=== PATIENT | female | born 1945 | race Caucasian/White ===

== ENCOUNTER 2016-08-01 17:23 | Emergency (ER) | payer MEDICAID ==
[~2016-08-01] VITALS: Ht 160 cm; Wt 54.5 kg
[2016-08-01 17:27] VITALS: Ht 160 cm; Wt 54.5 kg
--- NOTE | 2016-08-01 19:10 | RADRPT ---
PROCEDURE: CT neck without IV contrast. CLINICAL INDICATION: Pain/foreign body. TECHNIQUE: CT scan of the neck was performed on a 64-slice scanner. Contiguous axial images were obtained throughout the neck. The patient scanned without IV contrast. Coronal and sagittal reform atted images were made. Total radiation dose: Total CTDIvol: 8.1 mGy. Total DLP: 191 mGy-cm. One or more of the following d ose reduction techniques were used: automated exposure control, adjustment of the mA and/or kV accor ding to patient size, or use of iterative reconstruction technique COMPARISON: None available. FINDINGS: Nasopharynx/infratemporal fossa/skull base: The nasopharynx appears unremarkable. The torus tubarius/fossa Rosenmuller are normal. There is no destructive skull base lesion present. The pterygoid muscles appear unremarkable. The paranasal s inuses and orbits unremarkable. Oropharynx/oral cavity: There is no soft tissue mass present. The soft palate and tonsillar region are normal. The intrins ic tongue and floor of the mouth musculature are normal. The parapharyngeal space, sublingual/subma ndibular spaces and pharyngeal mucosal space appear normal. Hypopharynx/larynx: The hypopharynx and larynx unremarkable. The epiglottis, glossoepiglottic fold and vallecula have a normal appearance. The pyriform sinuses are unremarkable. The hyoid bone, thyroid cartilage, and ar ytenoid and cricoid cartilages are unremarkable. Lymph nodes: There is no significant lymphadenopathy present. Multipule sub-centimeter lymph nodes are present i n the anterior and posterior triangles of the neck. Salivary and thyroid glands: The parotid, submandibular and the region of the sublingual glands are unremarkable. The thyroid gl ands are normal. Others: There is mild degenerative spondylosis at C4-C5 and C5-C6. The visualized apical lung is c lear. There is 2 cm x 1.4 cm( CC x TR) opaque foreign body, likely fish bone in the proximal esopha raulito just below the cricopharyngeus IMPRESSION: 1. 2 cm x 1.4 cm( CC x TR) opaque foreign body, likely fish bone, in the proximal esophagus just be low the cricopharyngeus. 2. Mild degenerative spondylosis at C4-C5 and C5-C6. RPTAT: GG .Bassem Lopes MD, MD Date Time Electronically viewed and signed by .Bassem Lopes MD, MD on 08/01/2016 19:10 .Y/
[2016-08-01] MEDS ORDERED: ONDANSETRON 4 MG INJ IM STA (19:19)
[2016-08-01] MEDS ORDERED: GLUCAGON 1 MG INJ IM STA (19:19)
--- NOTE | 2016-08-01 20:43 | ERD ---
ER Documentation Chief Complaint Date/Time DATE: 08/01/16 TIME: 20:39 Chief Complaint feels fishbone stuck in throat x 2 hrs , no sob HPI This 70-year-old female presents to the emergency room for evaluation of sensation of a foreign body in her throat. The patient states using physician feels that she has a fishbone stuck in her throat for approximately 2 hours. She denies any shortness of breath or nausea or vomiting at this time. She denies any difficulty swallowing or drooling. ROS All systems reviewed and are negative except as per history of present illness. Allergies Allergies: Coded Allergies: No Known Allergy (Unverified , 08/01/16) PMhx/Soc Medical and Surgical Hx: pt denies Medical Hx, pt denies Surgical Hx Hx Cardiac Disorders: Yes (htn) Hx Alcohol Use: No Hx Substance Use: No Hx Tobacco Use: No Smoking Status: Never smoker Physical Exam Vitals Vital Signs Date Time Temp Pulse Resp B/P Pulse Ox O2 Delivery O2 Flow Rate FiO2 08/01/16 17:27 98.0 88 18 147/64 98 Physical Exam Const: No acute distress Head: Atraumatic Eyes: Normal Conjunctiva ENT: Normal External Ears, Nose and Mouth. Neck: Full range of motion..~ No meningismus. Resp: Clear to auscultation bilaterally Cardio: Regular rate and rhythm, no murmurs Abd: Soft, non tender, non distended. Normal bowel sounds Skin: No petechiae or rashes Back: No midline or flank tenderness Ext: No cyanosis, or edema Neur: Awake and alert Psych: Normal Mood and Affect Results 24 hrs Current Medications Medications (Trade) Dose Ordered Sig/Sugey Route PRN Reason Start Time Stop Time Status Last Admin Dose Admin Glucagon (Glucagen) 1 mg ONCE STAT IM 08/01/16 19:19 08/01/16 19:20 DC 08/01/16 19:24 Ondansetron HCl (Zofran Inj) 4 mg ONCE STAT IM 08/01/16 19:19 08/01/16 19:20 DC 08/01/16 19:24 Procedures/MDM CT soft tissue neck: 1. 2 cm x 1.4 cm( CC x TR) opaque foreign body, likely fish bone, in the proximal esophagus just below the cricopharyngeus. 2. Mild degenerative spondylosis at C4-C5 and C5-C6. This 70-year-old female presents to the ER for evaluation of a possible fishbone in her throat. When I evaluated this patient she was tolerating her secretions. CT of the soft tissue did confirm fishbone in the proximal esophagus just below the cricopharyngeus muscle. This patient was given glucagon, Zofran, and was given 2 cups of cola. The patient was able to drink DeCola and after 45 minutes of observation the patient states that she no longer has a foreign body sensation. The patient again is tolerating her secretions, has no respiratory distress and has no drooling. This patient will be discharged home with instructions to return immediately to the emergency room if she were to develop any sensation of foreign body in the throat as she will need to have it removed endoscopically by gastroenterology. I have spoken in depth to the patient and the patient's son in regards to this and both verbalized understanding and stated they will return immediately if her sensation returns. I have advised them of the risk of developing possible esophageal perforation, or abscess with a retained foreign body in the patient adamantly states that her foreign body sensation has resolved and she feels comfortable going home at this time. Departure Diagnosis: Primary Impression: Foreign body in esophagus Condition: Stable LAI NG DO Aug 01, 2016 20:43
[2016-08-01 20:53] VITALS: BP 138/70; PULSE 72; RESP 18; TEMP 98.8
== END 2016-08-01 20:55 | disposition home or self-care (01) ==
LOC: FTE 17:23
DX: T18.128A Food in esophagus causing other injury, initial encounter (principal); X58.XXXA Exposure to other specified factors, initial encounter; Y92.9 Unspecified place or not applicable
CPT/HCPCS: 70490; 96372; J1610; J2405; Z7502